=== PATIENT | female | born 1965 | race Caucasian/White ===

== ENCOUNTER → 2017-02-19 | Outpatient (CLI) | payer OTHER ==
[2017-02-19 09:41] LABS: HEMOGLOBIN 12.8 gm/dl (12.3-15.3); RED BLOOD COUNT 4.46 M/UL (4.00-5.10); WHITE BLOOD COUNT 5.2 K/UL (4.5-11.0)
[2017-02-19 10:04] LABS: BUN/CREATININE RATIO 19 (0-10)
== END ==
LOC: LAB 08:52
PROVIDERS: Internal Medicine Hematology & Oncology
DX: C18.7 Malignant neoplasm of sigmoid colon (principal)
CPT/HCPCS: 36415; 80053; 82378; 85025

== ENCOUNTER → 2017-02-22 | Outpatient (CLI) | payer OTHER | LOC: CT 09:28 | DX: C18.7 Malignant neoplasm of sigmoid colon (principal); K76.0 Fatty (change of) liver, not elsewhere classified; N85.9 Noninflammatory disorder of uterus, unspecified; R19.03 Right lower quadrant abdominal swelling, mass and lump | CPT/HCPCS: J7050; Q9962 ==

== ENCOUNTER 2022-03-06 19:58 | Emergency (ER) | payer OTHER ==
[~2022-03-06 19:58] MED LIST: DETROL2 MG PO; INDERAL TAB 4040 MG PO; LOPRESSOR 25 MG25 MG PO; MULTI-VITAMIN1 EACH PO; PROPRANOLOL HCL80 MG PO
[2022-03-06 21:46] LABS: HEMOGLOBIN 13.2 gm/dl (12.3-15.3); RED BLOOD COUNT 4.52 M/UL (4.00-5.10); WHITE BLOOD COUNT 7.2 K/UL (4.5-11.0)
[2022-03-06] MEDS ORDERED: FLOMAX 0.4 MG0.4 MG PO (22:39)
[2022-03-06] MEDS ORDERED: PYRIDIUM200 MG PO (22:39)
[2022-03-06] MEDS ORDERED: PERCOCET 5/325 T1 EA PO (22:39)
[2022-03-06] MEDS ORDERED: VIBRAMYCIN 100100 MG GT (22:39)
[2022-03-06] MEDS ORDERED: ZOFRAN ODT 4 MG4 MG GT (22:44)
== END 2022-03-07 00:06 | disposition home or self-care (01) ==
LOC: ER1 19:58
PROVIDERS: Physician Assistant
DX: N13.2 Hydronephrosis with renal and ureteral calculous obstruction (principal); I10 Essential (primary) hypertension; Z88.0 Allergy status to penicillin; Z88.2 Allergy status to sulfonamides; Z85.038 Personal history of other malignant neoplasm of large intestine
CPT/HCPCS: 80053; 81001; 85025; 96365; 96366; 96375; 96376; 99284; J1885; J2270; J2405; J7030